=== PATIENT | female | born 1955 | race Caucasian/White ===

== ENCOUNTER 2018-02-16 16:07 | Inpatient (IN) | payer MEDICARE, OTHER ==
[~2018-02-16] VITALS: Ht 165.1 cm; Wt 81.7 kg
[2018-02-16] MEDS: ALBUTEROL/IPRATROPIUM 2.5MG/0.5MG, 3 ML NPPB SCH ×2 (16:26→17:55)
[2018-02-16] MEDS ORDERED: ALBUTEROL/IPRATROPIUM 2.5MG/0.5MG, 3 ML ONE (16:26)
[2018-02-16] MEDS ORDERED: LORazepam 2 MG/ML, 1ML IVP ONE (16:30)
[2018-02-16] MEDS ORDERED: methylPREDNISolone SOD SUCC 125 MG/2 ML IVP ONE (16:30)
[2018-02-16] MEDS ORDERED: SODIUM CHLORIDE FLUSH 10ML SYR IVF ONE (16:30)
[2018-02-16] MEDS ORDERED: methylPREDNISolone SOD SUCC 125 MG/2 ML ONE (16:37)
[2018-02-16] MEDS ORDERED: LORazepam 2 MG/ML, 1ML ONE (16:38)
[2018-02-16] MEDS ORDERED: PLEASE ENTER ALLERGIES MC SCH (17:00)
[2018-02-16] MEDS ORDERED: MAGNESIUM SULFATE PMX 2GM/50ML 50 ML IVPB ONE (17:00)
[2018-02-16] MEDS ORDERED: ALBUTEROL 0.5%, 20ML ONE (17:02)
[2018-02-16 17:16] LABS: ANION GAP 8 mmol/L (5-15); CALCIUM 8.5 mg/dL (8.5-10.1); CHLORIDE 100 mmol/L (98-107)
[2018-02-16 17:18] LABS: INTERNATIONAL NORMALIZED RATIO 0.99 (0.93-1.1); PROTHROMBIN TIME 10.2 Seconds (9.6-11.5)
[2018-02-16 17:20] LABS: BASOPHILS # (AUTO) 0.01 x10^3/uL (0-0.1); BASOPHILS % (AUTO) 0 % (0-1); EOSINOPHILS # (AUTO) 0.02 x10^3/uL (0-0.4); EOSINOPHILS % (AUTO) 1 % (1-7); LYMPHOCYTES # (AUTO) 1.02 x10^3/uL (1-3.4); LYMPHOCYTES % (AUTO) 24 % (22-44); MD NO; MEAN CORPUSCULAR HEMOGLOBIN 33.1 pg (27.0-34.8); MEAN CORPUSCULAR HGB CONC 33.7 g/dL (32.4-35.8); MEAN CORPUSCULAR VOLUME 98.3 fL (80-100); MEAN PLATELET VOLUME 9.8 fL (7.4-10.4); MONOCYTES # (AUTO) 0.57 x10^3/uL (0.2-0.8); MONOCYTES % (AUTO) 14 % (2-9); NEUTROPHILS # (AUTO) 2.62 x10^3/uL (1.8-6.8); NEUTROPHILS % (AUTO) 62 % (42-75); PLATELET COUNT 156 x10^3/uL (130-400); RED BLOOD COUNT 5.34 x10^6/uL (3.82-5.3); RED CELL DISTRIBUTION WIDTH 14.4 % (9.6-15.2); TROPONIN I < 0.015 ng/mL (0.000-0.045)
[2018-02-16] MEDS ORDERED: ALBU8.5H8 INH (19:11)
[2018-02-16] MEDS ORDERED: ALPR-475 PO (19:11)
[2018-02-16] MEDS ORDERED: ONDANSETRON 2MG/ML, 2ML IVPush PRN (19:30)
[2018-02-16] MEDS ORDERED: ACETAMINOPHEN 325 MG TABLET PO PRN (19:30)
[2018-02-16] MEDS ORDERED: hydrALAzine 20 MG/ML, 1ML IVPush PRN (19:30)
[2018-02-16] MEDS ORDERED: SODIUM CHLORIDE FLUSH 10ML SYR IVF PRN (19:30)
[2018-02-16] MEDS: SODIUM CHLORIDE 0.9% 1,000 ML IV SCH (20:15)
[2018-02-16 20:40] VITALS: BP 125/82
[2018-02-16] MEDS: HYDROcodone/CHLORPHENIR ORAL SUSP PO PRN (22:48)
[2018-02-16] MEDS: methylPREDNISolone SOD SUCC 125 MG/2 ML IVPush SCH (22:48)
[2018-02-16] MEDS: ENOXAPARIN 40 MG/0.4 ML SQ SCH (22:49)
[2018-02-16] MEDS ORDERED: ALBUTEROL/IPRATROPIUM 2.5MG/0.5MG, 3 ML NPPB PRN (23:00)
[2018-02-17] MEDS ORDERED: DIPHENHYDRAMINE 12.5MG/5ML, 10ML UDC PO PRN (00:30)
[2018-02-17 02:24] VITALS: BP 114/66
[2018-02-17] MEDS: SODIUM CHLORIDE 0.9% 1,000 ML IV SCH ×2 (05:34→14:49)
[2018-02-17] MEDS: ALBUTEROL/IPRATROPIUM 2.5MG/0.5MG, 3 ML NPPB SCH ×5 (06:00→23:20)
[2018-02-17 06:43] LABS: BASOPHILS % (AUTO) 0 % (0-1); EOSINOPHILS % (AUTO) 0 % (1-7); LYMPHOCYTES # (AUTO) 0.35 x10^3/uL (1-3.4); LYMPHOCYTES % (AUTO) 8 % (22-44); MD NO; MEAN CORPUSCULAR HEMOGLOBIN 33.3 pg (27.0-34.8); MEAN CORPUSCULAR HGB CONC 33.9 g/dL (32.4-35.8); MEAN CORPUSCULAR VOLUME 98.2 fL (80-100); MONOCYTES # (AUTO) 0.11 x10^3/uL (0.2-0.8); MONOCYTES % (AUTO) 3 % (2-9); NEUTROPHILS # (AUTO) 3.68 x10^3/uL (1.8-6.8); NEUTROPHILS % (AUTO) 89 % (42-75); PLATELET COUNT 157 x10^3/uL (130-400); RED BLOOD COUNT 4.82 x10^6/uL (3.82-5.3); RED CELL DISTRIBUTION WIDTH 14.8 % (9.6-15.2)
[2018-02-17 06:44] VITALS: BP 143/87
[2018-02-17 06:55] LABS: ANION GAP 7 mmol/L (5-15); CHLORIDE 104 mmol/L (98-107); CREATININE 0.65 mg/dL (0.55-1.02)
[2018-02-17] MEDS: methylPREDNISolone SOD SUCC 125 MG/2 ML IVPush SCH ×3 (08:13→22:45)
[2018-02-17] MEDS: FLUOXETINE HCL 20 MG CAPSULE PO SCH (08:18)
[2018-02-17 12:46] VITALS: BP 135/74
[2018-02-17] MEDS: HYDROcodone/CHLORPHENIR ORAL SUSP PO PRN (13:40)
[2018-02-17 14:31] LABS: RAPID INFLUENZA A Negative (Negative); RAPID INFLUENZA B Negative (Negative)
[2018-02-17 19:07] VITALS: BP 143/81
[2018-02-17] MEDS ORDERED: NICOTINE 21 MG/24 HR PATCH.TD24 TD ONE (20:30)
[2018-02-17] MEDS: GUAIFENESIN/DM 200-20MG, 10ML UDC PO PRN (22:45)
[2018-02-17] MEDS: ENOXAPARIN 40 MG/0.4 ML SQ SCH (22:45)
[2018-02-18 00:54] VITALS: BP 136/73
[2018-02-18] MEDS: SODIUM CHLORIDE 0.9% 1,000 ML IV SCH ×3 (01:19→20:55)
[2018-02-18] MEDS: HYDROcodone/CHLORPHENIR ORAL SUSP PO PRN ×2 (01:42→13:44)
[2018-02-18 05:41] LABS: ANION GAP 8 mmol/L (5-15); CALCIUM 7.9 mg/dL (8.5-10.1); CHLORIDE 105 mmol/L (98-107)
[2018-02-18 05:43] LABS: BASOPHILS % (AUTO) 0 % (0-1); EOSINOPHILS % (AUTO) 0 % (1-7); LYMPHOCYTES # (AUTO) 0.42 x10^3/uL (1-3.4); LYMPHOCYTES % (AUTO) 5 % (22-44); MD NO; MEAN CORPUSCULAR HEMOGLOBIN 32.6 pg (27.0-34.8); MEAN CORPUSCULAR HGB CONC 33.1 g/dL (32.4-35.8); MEAN CORPUSCULAR VOLUME 98.6 fL (80-100); MEAN PLATELET VOLUME 10.1 fL (7.4-10.4); MONOCYTES # (AUTO) 0.43 x10^3/uL (0.2-0.8); MONOCYTES % (AUTO) 5 % (2-9); NEUTROPHILS # (AUTO) 8.06 x10^3/uL (1.8-6.8); NEUTROPHILS % (AUTO) 90 % (42-75); PLATELET COUNT 163 x10^3/uL (130-400); RED BLOOD COUNT 4.76 x10^6/uL (3.82-5.3); RED CELL DISTRIBUTION WIDTH 14.8 % (9.6-15.2)
[2018-02-18] MEDS: ALBUTEROL/IPRATROPIUM 2.5MG/0.5MG, 3 ML NPPB SCH ×6 (06:35→22:40)
[2018-02-18] MEDS: methylPREDNISolone SOD SUCC 125 MG/2 ML IVPush SCH (07:34)
[2018-02-18 07:42] VITALS: BP 139/76
[2018-02-18] MEDS: FLUOXETINE HCL 20 MG CAPSULE PO SCH (08:40)
[2018-02-18] MEDS: POLYETHYLENE GLYCOL 17 GM PACKET PO PRN (08:40)
[2018-02-18] MEDS: GUAIFENESIN/DM 200-20MG, 10ML UDC PO PRN ×2 (11:08→22:29)
[2018-02-18 12:16] VITALS: BP 118/72
[2018-02-18] MEDS ORDERED: ZOLPIDEM 5MG TABLET PO PRN (14:00)
[2018-02-18] MEDS ORDERED: OMNIPAQUE 350 MG/ML, 100ML BOTTLE ONE (17:12)
[2018-02-18] MEDS ORDERED: SODIUM CHLORIDE 0.9%, 500ML IVBOLUS ONE (17:30)
[2018-02-18 18:48] VITALS: BP 132/74
[2018-02-18] MEDS: OXYcodone/APAP 5/325MG TABLET PO PRN (20:54)
[2018-02-18] MEDS: ENOXAPARIN 40 MG/0.4 ML SQ SCH (22:30)
[2018-02-19] MEDS: HYDROcodone/CHLORPHENIR ORAL SUSP PO PRN (02:01)
[2018-02-19 02:04] VITALS: BP 164/111
[2018-02-19] MEDS ORDERED: KETOROLAC 30 MG/1 ML IVPush ONE ×2 (02:30→03:00)
[2018-02-19] MEDS ORDERED: NITROGLYCERIN 0.4 MG BOTTLE (25 TABS) SL PRN (02:30)
[2018-02-19] MEDS ORDERED: KETOROLAC 30 MG/1 ML ONE (02:34)
[2018-02-19 03:01] LABS: TROPONIN I < 0.015 ng/mL (0.000-0.045)
[2018-02-19 03:17] VITALS: BP 112/69
[2018-02-19] MEDS: MORPHINE SULFATE 4 MG/ML, 1ML IVPush PRN ×3 (03:51→14:08)
[2018-02-19] MEDS: SODIUM CHLORIDE 0.9% 1,000 ML IV SCH ×2 (05:00→17:57)
[2018-02-19 07:01] VITALS: BP 153/100
[2018-02-19] MEDS: ALBUTEROL/IPRATROPIUM 2.5MG/0.5MG, 3 ML NPPB SCH ×5 (07:05→22:00)
[2018-02-19] MEDS ORDERED: AZITHROMYCIN 500 MG TABLET PO ONE (07:30)
[2018-02-19] MEDS ORDERED: NITROGLYCERIN SINGLE TAB 0.4 MG SL ONE (08:00)
[2018-02-19] MEDS: FLUOXETINE HCL 20 MG CAPSULE PO SCH (10:14)
[2018-02-19 13:15] VITALS: BP 144/96
[2018-02-19 19:00] VITALS: BP 128/86
[2018-02-19] MEDS: ENOXAPARIN 40 MG/0.4 ML SQ SCH (23:19)
[2018-02-20 01:25] VITALS: BP 128/82
[2018-02-20] MEDS: SODIUM CHLORIDE 0.9% 1,000 ML IV SCH ×2 (02:02→12:14)
[2018-02-20 05:04] LABS: BASOPHILS # (AUTO) 0.01 x10^3/uL (0-0.1); BASOPHILS % (AUTO) 0 % (0-1); EOSINOPHILS % (AUTO) 0 % (1-7); LYMPHOCYTES # (AUTO) 0.61 x10^3/uL (1-3.4); LYMPHOCYTES % (AUTO) 12 % (22-44); MD NO; MEAN CORPUSCULAR HEMOGLOBIN 32.7 pg (27.0-34.8); MEAN CORPUSCULAR HGB CONC 33.5 g/dL (32.4-35.8); MEAN CORPUSCULAR VOLUME 97.7 fL (80-100); MEAN PLATELET VOLUME 9.3 fL (7.4-10.4); MONOCYTES # (AUTO) 0.45 x10^3/uL (0.2-0.8); MONOCYTES % (AUTO) 9 % (2-9); NEUTROPHILS # (AUTO) 3.98 x10^3/uL (1.8-6.8); NEUTROPHILS % (AUTO) 79 % (42-75); PLATELET COUNT 130 x10^3/uL (130-400); RED BLOOD COUNT 5.13 x10^6/uL (3.82-5.3); RED CELL DISTRIBUTION WIDTH 14.9 % (9.6-15.2)
[2018-02-20 05:17] LABS: ANION GAP 9 mmol/L (5-15); CALCIUM 7.8 mg/dL (8.5-10.1); CHLORIDE 97 mmol/L (98-107); CREATININE 0.47 mg/dL (0.55-1.02)
[2018-02-20] MEDS: ALBUTEROL/IPRATROPIUM 2.5MG/0.5MG, 3 ML NPPB SCH ×5 (07:40→22:00)
[2018-02-20 08:09] VITALS: BP 121/75
[2018-02-20] MEDS: CALCIUM CARBONATE 500 MG TABLET PO SCH ×2 (09:48→22:01)
[2018-02-20] MEDS: FLUOXETINE HCL 20 MG CAPSULE PO SCH (09:48)
[2018-02-20] MEDS ORDERED: POLYETHYLENE GLYCOL 17 GM PACKET NG PRN (12:00)
[2018-02-20] MEDS ORDERED: ERGOCALCIFEROL 50,000 UNIT CAPSULE PO SCH (12:00)
[2018-02-20 14:26] VITALS: BP 107/68
[2018-02-20] MEDS: POLYETHYLENE GLYCOL 17 GM PACKET PO PRN (14:35)
[2018-02-20] MEDS: NICOTINE 21 MG/24 HR PATCH.TD24 TD SCH (16:15)
[2018-02-20] MEDS: GUAIFENESIN/DM 200-20MG, 10ML UDC PO PRN (16:16)
[2018-02-20] MEDS: HYDROcodone/CHLORPHENIR ORAL SUSP PO PRN (16:22)
[2018-02-20 16:59] LABS: AMPHETAMINE SCREEN, URINE Negative (Negative); BARBITURATE SCREEN, URINE Negative (Negative); BENZODIAZEPINE SCREEN, URINE Positive (Negative); CANNABINOID SCREEN, URINE Positive (Negative); COCAINE SCREEN, URINE Negative (Negative); METHADONE SCREEN, URINE Negative (Negative); OPIATE SCREEN, URINE Positive (Negative)
[2018-02-20 17:32] LABS: OSMOLALITY,URINE 611 mOsm/kg (500-850)
[2018-02-20 20:20] VITALS: BP 115/77
[2018-02-20] MEDS: ENOXAPARIN 40 MG/0.4 ML SQ SCH (22:01)
[2018-02-20] MEDS: OXYcodone/APAP 5/325MG TABLET PO PRN (22:01)
[2018-02-21 02:00] VITALS: BP 128/66
[2018-02-21 05:04] LABS: ANION GAP 5 mmol/L (5-15); BASOPHILS # (AUTO) 0.01 x10^3/uL (0-0.1); BASOPHILS % (AUTO) 0 % (0-1); CALCIUM 8.1 mg/dL (8.5-10.1); CHLORIDE 100 mmol/L (98-107); EOSINOPHILS # (AUTO) 0.06 x10^3/uL (0-0.4); EOSINOPHILS % (AUTO) 1 % (1-7); LYMPHOCYTES # (AUTO) 0.93 x10^3/uL (1-3.4); LYMPHOCYTES % (AUTO) 25 % (22-44); MD NO; MEAN CORPUSCULAR HEMOGLOBIN 32.8 pg (27.0-34.8); MEAN CORPUSCULAR HGB CONC 33.8 g/dL (32.4-35.8); MEAN CORPUSCULAR VOLUME 96.9 fL (80-100); MEAN PLATELET VOLUME 9.4 fL (7.4-10.4); MONOCYTES # (AUTO) 0.52 x10^3/uL (0.2-0.8); MONOCYTES % (AUTO) 14 % (2-9); NEUTROPHILS % (AUTO) 60 % (42-75); PLATELET COUNT 131 x10^3/uL (130-400); RED BLOOD COUNT 4.89 x10^6/uL (3.82-5.3); RED CELL DISTRIBUTION WIDTH 14.8 % (9.6-15.2)
[2018-02-21 05:05] LABS: CREATININE 0.62 mg/dL (0.55-1.02)
[2018-02-21] MEDS: ALBUTEROL/IPRATROPIUM 2.5MG/0.5MG, 3 ML NPPB SCH ×3 (07:13→14:53)
[2018-02-21 07:32] VITALS: BP 134/80
[2018-02-21] MEDS: FLUOXETINE HCL 20 MG CAPSULE PO SCH (08:24)
[2018-02-21] MEDS: CALCIUM CARBONATE 500 MG TABLET PO SCH (08:24)
[2018-02-21] MEDS: GUAIFENESIN/DM 200-20MG, 10ML UDC PO PRN (12:04)
[2018-02-21 14:22] VITALS: BP 128/76
[2018-02-21] MEDS: OXYcodone/APAP 5/325MG TABLET PO PRN (15:20)
[2018-02-21] MEDS: NICOTINE 21 MG/24 HR PATCH.TD24 TD SCH (15:20)
== END 2018-02-21 17:49 | disposition home or self-care (01) | DRG 189 ==
LOC: SUATTDRO 19:14 → ED 19:44 → EDIP 20:32 → 3NE 20:50
PROVIDERS: ADMIT Hospitalist; ATTEND Hospitalist
DX: J96.21 Acute and chronic respiratory failure with hypoxia (principal); Z99.81 Dependence on supplemental oxygen; E87.1 Hypo-osmolality and hyponatremia; J44.1 Chronic obstructive pulmonary disease with (acute) exacerbation; F17.210 Nicotine dependence, cigarettes, uncomplicated; E55.9 Vitamin D deficiency, unspecified; K59.00 Constipation, unspecified; Z91.19 Patient's noncompliance with other medical treatment and regimen
CPT/HCPCS: 36415; 71045; 71275; 80048; 80307; 82040; 82306; 83605; 83880; 83930; 83935; 83970; 84484; 85025; 85610; 85730; 87040; 87400; 93005; 93306; 94640; 94644; 96365; 96366; 96375; J1650; J1885; J2405; J7620; Q9967; J0360; J2060; J2930; J3475; J7030; J7040; J7512

== ENCOUNTER 2018-05-25 16:08 | Inpatient (IN) | payer MEDICARE ==
[~2018-05-25] VITALS: Ht 165.1 cm; Wt 75.0 kg
[~2018-05-25 16:08] MED LIST: ALBU8.5H8 INH; ALPR-475 PO
[2018-05-25] MEDS ORDERED: SODIUM CHLORIDE 0.9% 1,000 ML IV ONE (17:37)
[2018-05-25] MEDS ORDERED: ONDANSETRON 2MG/ML, 2ML ONE (17:48)
[2018-05-25] MEDS ORDERED: MORPHINE SULFATE 4 MG/ML, 1ML ONE ×2 (17:48→20:32)
[2018-05-25] MEDS ORDERED: ONDANSETRON ODT 4 MG ONE (17:50)
[2018-05-25] MEDS: MORPHINE SULFATE 4 MG/ML, 1ML IVPush PRN ×2 (17:55→20:36)
[2018-05-25] MEDS ORDERED: ONDANSETRON ODT 4 MG PO ONE (18:00)
[2018-05-25] MEDS ORDERED: SODIUM CHLORIDE FLUSH 10ML SYR IVF ONE (18:00)
[2018-05-25 18:16] LABS: BASOPHILS # (AUTO) 0.02 x10^3/uL (0-0.1); BASOPHILS % (AUTO) 0 % (0-1); EOSINOPHILS # (AUTO) 0.07 x10^3/uL (0-0.4); EOSINOPHILS % (AUTO) 1 % (1-7); LYMPHOCYTES # (AUTO) 1.49 x10^3/uL (1-3.4); LYMPHOCYTES % (AUTO) 17 % (22-44); MD NO; MEAN CORPUSCULAR HEMOGLOBIN 32.2 pg (27.0-34.8); MEAN CORPUSCULAR HGB CONC 33.6 g/dL (32.4-35.8); MEAN CORPUSCULAR VOLUME 96.1 fL (80-100); MEAN PLATELET VOLUME 9.7 fL (7.4-10.4); MONOCYTES % (AUTO) 6 % (2-9); NEUTROPHILS # (AUTO) 6.53 x10^3/uL (1.8-6.8); NEUTROPHILS % (AUTO) 76 % (42-75); PLATELET COUNT 163 x10^3/uL (130-400); RED BLOOD COUNT 5.51 x10^6/uL (3.82-5.3); RED CELL DISTRIBUTION WIDTH 13.7 % (9.6-15.2)
[2018-05-25 18:21] LABS: INTERNATIONAL NORMALIZED RATIO 1.01 (0.93-1.1); PROTHROMBIN TIME 10.5 Seconds (9.6-11.5)
[2018-05-25 18:25] LABS: ALANINE AMINOTRANSFERASE 58 U/L (12-78); ALBUMIN 3.6 g/dL (3.4-5.0); ANION GAP 8 mmol/L (5-15); CALCIUM 8.9 mg/dL (8.5-10.1); CHLORIDE 104 mmol/L (98-107); CREATININE 0.63 mg/dL (0.55-1.02)
[2018-05-25 18:27] LABS: ALKALINE PHOSPHATASE 93 U/L (45-117); BILIRUBIN,TOTAL 0.5 mg/dL (0.2-1.0); TOTAL PROTEIN 7.5 g/dL (6.4-8.2)
[2018-05-25] MEDS ORDERED: OMNIPAQUE 350 MG/ML, 100ML BOTTLE ONE (19:09)
[2018-05-25] MEDS ORDERED: HYDR-3240 PO (20:42)
[2018-05-25] MEDS ORDERED: FLUO40CA9 PO (20:42)
[2018-05-25] MEDS ORDERED: ALPR1TAB2 PO (20:42)
[2018-05-25 22:37] VITALS: BP 123/79
[2018-05-25] MEDS ORDERED: ACETAMINOPHEN 325 MG TABLET PO PRN (23:30)
[2018-05-25] MEDS ORDERED: SODIUM CHLORIDE FLUSH 10ML SYR IVF SCH (23:30)
[2018-05-25] MEDS ORDERED: POLYETHYLENE GLYCOL 17 GM PACKET PO PRN (23:30)
[2018-05-25] MEDS ORDERED: ONDANSETRON 2MG/ML, 2ML IVPush PRN (23:30)
[2018-05-25] MEDS ORDERED: NICOTINE 7 MG/24 HR PATCH.TD24 TD SCH (23:30)
[2018-05-25] MEDS: SODIUM CHLORIDE 0.9% 1,000 ML IV SCH (23:52)
[2018-05-26 03:10] VITALS: BP 106/65
[2018-05-26] MEDS: morphine SULFATE 10 MG/ML, 1ML IVPush PRN ×2 (03:29→08:32)
[2018-05-26 05:42] LABS: CHLORIDE 105 mmol/L (98-107)
[2018-05-26 05:45] LABS: BASOPHILS # (AUTO) 0.02 x10^3/uL (0-0.1); BASOPHILS % (AUTO) 0 % (0-1); EOSINOPHILS # (AUTO) 0.22 x10^3/uL (0-0.4); EOSINOPHILS % (AUTO) 3 % (1-7); LYMPHOCYTES # (AUTO) 1.57 x10^3/uL (1-3.4); LYMPHOCYTES % (AUTO) 18 % (22-44); MD NO; MEAN CORPUSCULAR HEMOGLOBIN 31.9 pg (27.0-34.8); MEAN CORPUSCULAR HGB CONC 33.1 g/dL (32.4-35.8); MEAN CORPUSCULAR VOLUME 96.5 fL (80-100); MEAN PLATELET VOLUME 9.7 fL (7.4-10.4); MONOCYTES # (AUTO) 0.63 x10^3/uL (0.2-0.8); MONOCYTES % (AUTO) 7 % (2-9); NEUTROPHILS # (AUTO) 6.16 x10^3/uL (1.8-6.8); NEUTROPHILS % (AUTO) 72 % (42-75); PLATELET COUNT 175 x10^3/uL (130-400); RED BLOOD COUNT 4.76 x10^6/uL (3.82-5.3); RED CELL DISTRIBUTION WIDTH 13.4 % (9.6-15.2)
[2018-05-26 05:48] LABS: ALANINE AMINOTRANSFERASE 42 U/L (12-78); ALBUMIN 2.9 g/dL (3.4-5.0); ALKALINE PHOSPHATASE 79 U/L (45-117); ANION GAP 8 mmol/L (5-15); BILIRUBIN,TOTAL 0.3 mg/dL (0.2-1.0); CALCIUM 8.2 mg/dL (8.5-10.1); CREATININE 0.62 mg/dL (0.55-1.02)
[2018-05-26] MEDS: ALBUTEROL SULFATE 2.5 MG/3 ML NPPB SCH ×3 (07:00→14:53)
[2018-05-26 08:28] VITALS: BP 125/76
[2018-05-26] MEDS: SODIUM CHLORIDE 0.9% 1,000 ML IV SCH (08:32)
[2018-05-26] MEDS ORDERED: SENNA/DOCUSATE TABLET PO SCH (09:00)
[2018-05-26] MEDS ORDERED: ALPRazolam 1MG TABLET PO SCH (09:00)
[2018-05-26] MEDS ORDERED: FLUOXETINE HCL 20 MG CAPSULE PO SCH (09:00)
[2018-05-26 12:21] VITALS: BP 131/75
[2018-05-26] MEDS ORDERED: CEFDINIR 300 MG CAPSULE PO SCH (14:00)
[2018-05-26] MEDS ORDERED: metroNIDAZOLE 500 MG TABLET PO SCH (14:00)
[2018-05-26] MEDS ORDERED: METR500T PO (14:10)
[2018-05-26] MEDS ORDERED: CEFD300C37 PO (14:10)
== END 2018-05-26 16:35 | disposition home or self-care (01) | DRG 372 ==
LOC: ED 20:02 → EDIP 21:23 → 3NE 22:50
PROVIDERS: ADMIT Internal Medicine; ATTEND Internal Medicine
DX: A04.9 Bacterial intestinal infection, unspecified (principal); J96.10 Chronic respiratory failure, unspecified whether with hypoxia or hypercapnia; F17.210 Nicotine dependence, cigarettes, uncomplicated; F32.9 Major depressive disorder, single episode, unspecified; D75.1 Secondary polycythemia; F41.9 Anxiety disorder, unspecified; M54.9 Dorsalgia, unspecified; D25.9 Leiomyoma of uterus, unspecified; E86.0 Dehydration; G89.29 Other chronic pain; J44.9 Chronic obstructive pulmonary disease, unspecified; Z66 Do not resuscitate; Z82.49 Family history of ischemic heart disease and other diseases of the circulatory system; Z98.51 Tubal ligation status; Z80.6 Family history of leukemia
CPT/HCPCS: 36415; 71045; 74177; 80053; 83605; 85025; 85610; 86850; 86900; 93005; 94640; 96361; 96374; 96376; 99285; J7613; Q0162; Q9967; J2270; J7030